=== PATIENT | female | born 1965 | race Caucasian/White ===

== ENCOUNTER 2020-10-17 12:51 | Emergency (ER) | payer SELFPAY ==
[2020-10-17 13:15] VITALS: TEMP 98.7; BMI 27.4
[2020-10-17 14:51] LABS: BASO % 0.7 % (0-2.0); EOS % 0.4 % (0-4.5); HEMATOCRIT 41.1 % (32.4-45.2); HEMOGLOBIN 14.4 GM/dL (10.7-15.3); LYMPH % 27.4 % (8-40); MCH 28.2 pg (25.7-33.7); MCHC 35.1 g/dl (32.0-36.0); MEAN CELL VOLUME 80.5 fl (80-96); MEAN PLT VOLUME 8.2 fl (7.5-11.1); NEUT % 67.5 % (42.8-82.8); PLATELET COUNT 260 10^3/uL (134-434); RDW 13.4 % (11.6-15.6); WHITE BLOOD COUNT 10.6 K/mm3 (4.0-10.0)
[2020-10-17] MEDS ORDERED: ACETAMINOPHEN/CAFFEINE/BUTALBITAL 1 TAB PO ONE (14:51)
[2020-10-17 15:11] LABS: CHLORIDE 106 mmol/L (98-107); SODIUM 140 mmol/L (136-145)
[2020-10-17 15:13] LABS: BLOOD UREA NITROGEN 8.7 mg/dL (7-18); CALCIUM 8.8 mg/dL (8.5-10.1)
[2020-10-17 15:14] LABS: ALBUMIN 3.7 g/dl (3.4-5.0); ANION GAP 9 MMOL/L (8-16); CO2 25 mmol/L (21-32); GLUCOSE,RANDOM 103 mg/dL (74-106)
[2020-10-17 15:17] LABS: CREATININE 0.5 mg/dL (0.55-1.3); SGOT/AST 14 U/L (15-37); SGPT/ALT 19 U/L (13-61)
[2020-10-17 15:18] LABS: BILIRUBIN,TOTAL 0.4 mg/dL (0.2-1); TOT PROT 7.2 g/dl (6.4-8.2)
[2020-10-17 15:19] LABS: ALK PHOS 92 U/L (45-117)
[2020-10-17] MEDS ORDERED: ACETAMINOPHEN/CAFFEINE/BUTALBITAL 1 TAB ONE (15:39)
[2020-10-17 16:38] VITALS: BP 121/68; PULSE 67
== END 2020-10-17 16:05 | disposition home or self-care (01) ==
LOC: JER 12:51
DX: R51.9 Headache, unspecified (principal)
CPT/HCPCS: 36415; 70450-TC; 80053; 84443; 84484; 85025; 93005; 93010; 99285-25